=== PATIENT | female | born 1980 | race Caucasian/White ===

== ENCOUNTER 2017-08-22 13:00 | Inpatient (IN) | payer OTHER ==
[~2017-08-22] VITALS: Ht 160 cm; Wt 124.0 kg
[~2017-08-22 13:00] MED LIST: CIPROFLOXACIN 400 MG PREMIX 200 ML IV SCH; DEXAMETHASONE SOD PHOS 4 MG/ML VIAL IV ONE; LACTATED RINGER'S 1,000 ML BAG IV ONE; LIDOCAINE HCL 1% PF 5 ML AMPULE OTHER ONE; MIDAZOLAM HCL 2 MG/2 ML VIAL IV ONE; ONDANSETRON HCL 4 MG/2 ML VIAL IV PUSH ONE; PROPOFOL 200 MG/20 ML AMP IV ONE; ROCURONIUM INJ 50 MG/5 ML SYRINGE IV PUSH ONE
[2017-08-22 13:03] VITALS: BP 168/97; PULSE 145; RESP 28; TEMP 97.8; O2SAT 98
--- NOTE | 2017-08-22 14:38 | PD ---
HPI Chief Complaint: Flank/Kidney Pain Time Seen by Provider: 14:20 Travel History International Travel<30 days: No Contact w/Intl Traveler<30days: No Traveled to known affect area: No History of Present Illness HPI The patient is a 36-year-old female who presents to the emergency department for right flank pain. The patient states she developed pain on Monday located in the right lower quadrant. Pain now radiates up to the right flank and right upper quadrant. The pain has been constant, severe, associated with dry heaves, and a few episodes of loose stool. She also states her last menstrual cycle was 4 months ago, until earlier today when she had a light vaginal spotting. The patient had a test at her physician's office which was negative per her report. The patient also states she is unable to become . The patient does note some dark colored urine and subjective fevers and chills at home. She denies any previous abdominal surgeries. She denies any dysuria, frequency, or urgency. Symptoms are moderate, there are no current alleviating or exacerbating factors. PFSH Past Medical History Medical History: Denies Significant Hx ?: Unknown Past Surgical History Surgical History: No Previous Surgery Social History Alcohol Use: No Tobacco Use: No Substance Use: No Allergies-Medications (Allergen,Severity, Reaction): Coded Allergies: Penicillins (Verified Allergy, Severe, 08/22/17) cefixime (Verified Allergy, Severe, 08/22/17) Review of Systems Except as stated in HPI: all other systems reviewed are Neg General / Constitutional: No: Fever, Chills Cardiovascular: No: Chest Pain or Discomfort Respiratory: No: Shortness of Breath Gastrointestinal: Positive: Nausea, Vomiting (dry heaves), Abdominal Pain Genitourinary: Positive: Flank Pain, Vaginal Bleeding (spotting), No: Dysuria Skin: No Rash Physical Exam Narrative GENERAL: Awake, alert, pleasant 36 year-old female appears her stated age and appears in moderate discomfort. SKIN: Focused skin assessment warm/dry. HEAD: Atraumatic. Normocephalic. EYES: Pupils equal and round. No scleral icterus. No injection or drainage. ENT: No nasal bleeding or discharge. Mucous membranes pink and moist. NECK: Trachea midline. No JVD. CARDIOVASCULAR: Regular, tachycardic with a heart rate of 115. RESPIRATORY: No accessory muscle use. Clear to auscultation. Breath sounds equal bilaterally. GASTROINTESTINAL: Abdomen soft, obese, tender palpation right lower quadrant, right flank, right upper quadrant. Back: Right CVA tenderness. MUSCULOSKELETAL: No obvious deformities. No clubbing. No cyanosis. No edema. NEUROLOGICAL: Awake and alert. No obvious cranial nerve deficits. Motor grossly within normal limits. Normal speech. PSYCHIATRIC: Appropriate mood and affect; insight and judgment normal. Data Data Last Documented VS Vital Signs Date Time Temp Pulse Resp B/P (MAP) Pulse Ox O2 Delivery O2 Flow Rate FiO2 08/22/17 13:03 97.8 145 28 168/97 (120) 98 Orders Orders Complete Blood Count With Diff (08/22/17 13:13) Comprehensive Metabolic Panel (08/22/17 13:13) Lipase (08/22/17 13:13) Prothrombin Time / Inr (Pt) (08/22/17 13:13) Act Partial Throm Time (Ptt) (08/22/17 13:13) Urinalysis - C+S If Indicated (08/22/17 13:13) Ed Urine Pregnancytest Poc (08/22/17 13:13) Ct Abd/Pel W/O Iv Contrast (08/22/17 ) Morphine Inj (Morphine Inj) (08/22/17 14:45) Ondansetron Inj (Zofran Inj) (08/22/17 14:45) Ketorolac Inj (Toradol Inj) (08/22/17 14:45) Sodium Chlor 0.9% 1000 Ml Inj (Ns 1000 M (08/22/17 14:45) Ciprofloxacin 400 Mg Premix (Cipro 400 M (08/22/17 15:30) Metronidazole 500 Mg Inj (Flagyl 500 Mg (08/22/17 15:30) NPO (08/22/17 15:21) Ns + Kcl 20 Meq Inj (Ns + Kcl 20 Meq Inj (08/22/17 15:30) Admit Order (Ed Use Only) (08/22/17 ) Vital Signs (Adult) Q4H (08/22/17 16:27) Diet Npo (08/22/17 Dinner) Activity Oob With Assistance (08/22/17 16:27) Activity Bed Rest With Brp (08/22/17 16:28) Vital Signs (Adult) Q4H (08/22/17 16:28) Notify Parameters (08/22/17 16:28) ^ Obtain (08/22/17 16:28) Sodium Chloride 0.9% Flush (Ns Flush) (08/22/17 16:30) Sodium Chloride 0.9% Flush (Ns Flush) (08/22/17 21:00) Acetaminophen (Tylenol) (08/22/17 16:30) Acetamin-Hydrocod 325-7.5 Mg ([place] [facility] 7.5 (08/22/17 16:30) Morphine Inj (Morphine Inj) (08/22/17 16:30) Ondansetron Inj (Zofran Inj) (08/22/17 16:30) Ciprofloxacin 400 Mg Premix (Cipro 400 M (08/22/17 16:30) Metronidazole 500 Mg Inj (Flagyl 500 Mg (08/22/17 16:30) Labs Laboratory Tests Test 08/22/17 14:15 08/22/17 14:24 White Blood Count 20.7 TH/MM3 Red Blood Count 4.63 MIL/MM3 Hemoglobin 13.8 GM/DL Hematocrit 39.8 % Mean Corpuscular Volume 85.9 FL Mean Corpuscular Hemoglobin 29.8 PG Mean Corpuscular Hemoglobin Concent 34.7 % Red Cell Distribution Width 13.8 % Platelet Count 307 TH/MM3 Mean Platelet Volume 9.1 FL Neutrophils (%) (Auto) 90.4 % Lymphocytes (%) (Auto) 5.5 % Monocytes (%) (Auto) 3.4 % Eosinophils (%) (Auto) 0.4 % Basophils (%) (Auto) 0.3 % Neutrophils # (Auto) 18.7 TH/MM3 Lymphocytes # (Auto) 1.1 TH/MM3 Monocytes # (Auto) 0.7 TH/MM3 Eosinophils # (Auto) 0.1 TH/MM3 Basophils # (Auto) 0.1 TH/MM3 CBC Comment DIFF FINAL Differential Comment Prothrombin Time 11.5 SEC Prothromb Time International Ratio 1.0 RATIO Activated Partial Thromboplast Time 36.0 SEC Blood Urea Nitrogen 14 MG/DL Creatinine 0.81 MG/DL Random Glucose 103 MG/DL Total Protein 8.8 GM/DL Albumin 3.3 GM/DL Calcium Level 9.7 MG/DL Alkaline Phosphatase 94 U/L Aspartate Amino Transf (AST/SGOT) 26 U/L Alanine Aminotransferase (ALT/SGPT) 48 U/L Total Bilirubin 0.9 MG/DL Sodium Level 130 MEQ/L Potassium Level 3.1 MEQ/L Chloride Level 97 MEQ/L Carbon Dioxide Level 24.1 MEQ/L Anion Gap 9 MEQ/L Estimat Glomerular Filtration Rate 80 ML/MIN Lipase 74 U/L Urine Color YELLOW Urine Turbidity HAZY Urine pH 6.5 Urine Specific Boomer 1.030 Urine Protein 300 mg/dL Urine Glucose (UA) NEG mg/dL Urine Ketones 150 mg/dL Urine Occult Blood MOD Urine Nitrite NEG Urine Bilirubin NEG Urine Urobilinogen 2.0 MG/DL Urine Leukocyte Esterase NEG Urine RBC 5 /hpf Urine WBC 5 /hpf Urine Squamous Epithelial Cells 1 /hpf Urine Bacteria RARE /hpf Urine Mucus FEW /lpf Microscopic Urinalysis Comment CULT NOT INDICATED MDM Medical Decision Making Medical Screen Exam Complete: Yes Emergency Medical Condition: Yes Medical Record Reviewed: Yes Interpretation(s) Last Impressions Abdomen/Pelvis CT 08/22/17 0000 Signed Impressions: Service Date/Time: Tuesday, August 22, 2017 14:55 - CONCLUSION: 1. Dilated , inflamed appendix with multiple appendicoliths most consistent with acute appendicitis. No abscess is seen. 2. Fatty infiltration of the liver. Devan Greenberg MD Laboratory Tests Test 08/22/17 14:15 08/22/17 14:24 White Blood Count 20.7 TH/MM3 Red Blood Count 4.63 MIL/MM3 Hemoglobin 13.8 GM/DL Hematocrit 39.8 % Mean Corpuscular Volume 85.9 FL Mean Corpuscular Hemoglobin 29.8 PG Mean Corpuscular Hemoglobin Concent 34.7 % Red Cell Distribution Width 13.8 % Platelet Count 307 TH/MM3 Mean Platelet Volume 9.1 FL Neutrophils (%) (Auto) 90.4 % Lymphocytes (%) (Auto) 5.5 % Monocytes (%) (Auto) 3.4 % Eosinophils (%) (Auto) 0.4 % Basophils (%) (Auto) 0.3 % Neutrophils # (Auto) 18.7 TH/MM3 Lymphocytes # (Auto) 1.1 TH/MM3 Monocytes # (Auto) 0.7 TH/MM3 Eosinophils # (Auto) 0.1 TH/MM3 Basophils # (Auto) 0.1 TH/MM3 CBC Comment DIFF FINAL Differential Comment Prothrombin Time 11.5 SEC Prothromb Time International Ratio 1.0 RATIO Activated Partial Thromboplast Time 36.0 SEC Blood Urea Nitrogen 14 MG/DL Creatinine 0.81 MG/DL Random Glucose 103 MG/DL Total Protein 8.8 GM/DL Albumin 3.3 GM/DL Calcium Level 9.7 MG/DL Alkaline Phosphatase 94 U/L Aspartate Amino Transf (AST/SGOT) 26 U/L Alanine Aminotransferase (ALT/SGPT) 48 U/L Total Bilirubin 0.9 MG/DL Sodium Level 130 MEQ/L Potassium Level 3.1 MEQ/L Chloride Level 97 MEQ/L Carbon Dioxide Level 24.1 MEQ/L Anion Gap 9 MEQ/L Estimat Glomerular Filtration Rate 80 ML/MIN Lipase 74 U/L Urine Color YELLOW Urine Turbidity HAZY Urine pH 6.5 Urine Specific Boomer 1.030 Urine Protein 300 mg/dL Urine Glucose (UA) NEG mg/dL Urine Ketones 150 mg/dL Urine Occult Blood MOD Urine Nitrite NEG Urine Bilirubin NEG Urine Urobilinogen 2.0 MG/DL Urine Leukocyte Esterase NEG Urine RBC 5 /hpf Urine WBC 5 /hpf Urine Squamous Epithelial Cells 1 /hpf Urine Bacteria RARE /hpf Urine Mucus FEW /lpf Microscopic Urinalysis Comment CULT NOT INDICATED Differential Diagnosis Differential diagnosis includes ectopic , appendicitis, ovarian torsion , nephrolithiasis, hydronephrosis, pyelonephritis, perforated viscus, diverticulitis, PID, cervicitis. Narrative Course IV was established, labs are drawn and sent, and the patient was placed on cardiac telemetry monitoring and continuous pulse oximetry monitoring. The patient was administered morphine, Toradol, Zofran, and IV fluids. Bedside UA test was obtained. UA was sent to lab. test is negative. UA reveals ketones. White count is elevated at 20.7. Potassium is low at 3.1, patient was placed on maintenance fluids normal saline 125 miles per hour with KCl. CT of the abdomen and all this is positive for appendicitis. The on-call [facility] surgeon was paged for 23 hour observation. The patient is allergic to penicillins and cephalosporins, therefore, was administered Cipro and Flagyl intravenously. The patient will be kept nothing by mouth. The patient will be 23 hour observation to the [facility] surgeon, Dr. Crowe. Sepsis Criteria SIRS Criteria (2 or more): Heart rate over 90, WBC > 33277, < 4000 or > 10% bands Sepsis Criteria (SIRS+source): Infect source susp/known Criteria Outcome: Meets sepsis criteria Physician Communication Physician Communication The on-call [facility] surgeon was paged for 23 hour observation for appendicitis. I discussed the patient with Dr. Crowe who agrees with 23 hour observation. Admitting Information Admitting Physician Requests: Observation Condition: Stable Arnoldo Way MD Aug 22, 2017 14:38
[2017-08-22] MEDS ORDERED: MORPHINE SULFATE 4 MG/ML INJ IV PUSH ONE (14:45)
[2017-08-22] MEDS ORDERED: SODIUM CHLOR 0.9% 1000 ML INJ 1,000 ML IV ONE (14:45)
[2017-08-22] MEDS ORDERED: ONDANSETRON HCL 4 MG/2 ML VIAL IV PUSH ONE (14:45)
[2017-08-22] MEDS ORDERED: KETOROLAC TROMETHAMINE 30 MG/ML (IVP) VIAL IV PUSH ONE (14:45)
[2017-08-22 14:59] LABS: AUTOMATED NEUTROPHIL # 18.7 TH/MM3 (1.8-7.7); BASOPHIL # 0.1 TH/MM3 (0-0.2); BASOPHIL % 0.3 % (0.0-2.0); EOSINOPHIL # 0.1 TH/MM3 (0-0.4); EOSINOPHIL % 0.4 % (0.0-4.0); HEMATOCRIT 39.8 % (35.0-46.0); HEMO FLAGS DIFF FINAL; LYMPH % 5.5 % (9.0-44.0); LYMPHOCYTE # 1.1 TH/MM3 (1.0-4.8); MEAN CELL VOLUME 85.9 FL (80.0-100.0); MEAN CORPUSCULAR HEMOGLOBIN 29.8 PG (27.0-34.0); MEAN CORPUSCULAR HGB CONC 34.7 % (32.0-36.0); MONO % 3.4 % (0.0-8.0); NEUT % 90.4 % (16.0-70.0); PLATELET COUNT 307 TH/MM3 (150-450); RED BLOOD COUNT 4.63 MIL/MM3 (4.00-5.30); RED CELL DISTRIBUTION WIDTH 13.8 % (11.6-17.2); WHITE BLOOD COUNT 20.7 TH/MM3 (4.0-11.0)
[2017-08-22 15:04] LABS: BACTERIA, URINE RARE /hpf; BLOOD, URINE MOD (NEG); COMMENT (UR) CULT NOT INDICATED; CULTURE IF INDICATED CULT NOT INDICATED; GLUCOSE,URINE NEG (NEG); KETONE, URINE 150 mg/dL (NEG); MUCUS URINE FEW /lpf (OCC); NITRITE,URINE NEG (NEG); PH, URINE 6.5 (5.0-8.5); SQUAMOUS EPITHELIAL CELL URINE 1 /hpf (0-5); URINE COLOR YELLOW (YELLW/STRAW)
[2017-08-22 15:10] LABS: ALKALINE PHOSPHATASE 94 U/L (45-117); TOTAL BILIRUBIN ADULT 0.9 MG/DL (0.2-1.0)
[2017-08-22 15:14] LABS: PROTHROMBIN TIME - PATIENT 11.5 SEC (9.8-11.6)
--- NOTE | 2017-08-22 15:14 | RADRPT ---
EXAM DATE/TIME: 08/22/2017 14:55 [facility] COMPARISON: No previous studies available for comparison. INDICATIONS : Right flank pain for three days. ORAL CONTRAST: No oral contrast ingested. RADIATION DOSE: 8.54 CTDIvol (mGy) MEDICAL HISTORY : None SURGICAL HISTORY : None. ENCOUNTER: Initial ACUITY: 1 day PAIN SCALE: 5/10 LOCATION: Right flank TECHNIQUE: Volumetric scanning of the abdomen and pelvis was performed. Using automated exposure control and ad justment of the mA and/or kV according to patient size, radiation dose was kept as low as reasonably achievable to obtain optimal diagnostic quality images. DICOM format image data is available electro nically for review and comparison. FINDINGS: Right kidney/ureter: The right kidney is normal in size. No stones are seen. The right ureter is followed throughout its c ourse and is unremarkable in appearance. Left kidney/ureter: The left kidney is normal in size. No stones are seen. There is no hydronephrosis. The left ureter is followed throughout its course and is unremarkable in appearance. Moderate: No stones are seen within the bladder. CT source data: The examination demonstrates a dilated, fluid-filled appendix with multiple appendicoliths. There are inflammatory changes surrounding the appendix. Findings would be most consistent with acute appendic itis. No focal abscess is seen. No free air is seen. The visualized bony structures demonstrate degenerative changes but are otherwise intact. There is diffuse fatty infiltration within the liver. The spleen, pancreas and adrenal glands are int act. CONCLUSION: 1. Dilated, inflamed appendix with multiple appendicoliths most consistent with acute appendicitis. N o abscess is seen. 2. Fatty infiltration of the liver. Devan Greenberg MD on August 22, 2017 at 15:10 Board Certified Radiologist. This report was verified electronically.
[2017-08-22 15:23] LABS: ALT (GPT) 48 U/L (10-53); ANION GAP 9 MEQ/L (5-15); AST (GOT) 26 U/L (15-37); BICARBONATE 24.1 MEQ/L (21.0-32.0); BLOOD UREA NITROGEN 14 MG/DL (7-18); CHLORIDE 97 MEQ/L (98-107); GLOMERULAR FILTRATION RATE 80 ML/MIN (>89); SODIUM (NA) 130 MEQ/L (136-145)
[2017-08-22 15:26] LABS: POTASSIUM 3.1 MEQ/L (3.5-5.1)
[2017-08-22] MEDS ORDERED: NS + KCL 20 MEQ INJ 1,000 ML IV SCH (15:30)
[2017-08-22] MEDS ORDERED: CIPROFLOXACIN 400 MG PREMIX 200 ML IV ONE (15:30)
[2017-08-22] MEDS ORDERED: metroNIDAZOLE 500 MG INJ 100 ML IV ONE (15:30)
[2017-08-22] MEDS ORDERED: SODIUM CHLORIDE 0.9% FLUSH 10 ML FLUSH IV FLUSH PRN ×2 (16:30→23:30)
[2017-08-22] MEDS ORDERED: ONDANSETRON HCL 4 MG/2 ML VIAL IV PUSH PRN ×2 (16:30→23:30)
[2017-08-22] MEDS ORDERED: ACETAMINOPHEN 500 MG CPLT PO PRN (16:30)
[2017-08-22] MEDS ORDERED: ACETAMINOPHEN/HYDROcodone 325 MG/7.5 MG TAB PO PRN (16:30)
[2017-08-22] MEDS ORDERED: MORPHINE SULFATE 2 MG/ML INJ IV PUSH PRN (17:00)
[2017-08-22 17:46] VITALS: BP 110/71; PULSE 77; RESP 15; TEMP 98.3; O2SAT 96
[2017-08-22] MEDS ORDERED: BUPIVACAINE/EPINEPHRINE 0.5% PF 30 ML VIAL ONE (18:22)
[2017-08-22] MEDS ORDERED: ACETAMINOPHEN 1000 MG/100 ML 100 ML IV ONE (19:36)
[2017-08-22] MEDS ORDERED: SUGAMMADEX SODIUM 200 MG/2 ML VIAL IV PUSH ONE ×2 (19:36)
[2017-08-22] MEDS ORDERED: HYDROmorphone HCL PF 2 MG/ML VIAL ONE (19:36)
[2017-08-22 20:00] VITALS: BP 116/57; PULSE 88; RESP 17; TEMP 97.5; O2SAT 99
[2017-08-22] MEDS ORDERED: SODIUM CHLORIDE 0.9% FLUSH 10 ML FLUSH IV FLUSH SCH (21:00)
[2017-08-22] MEDS: D5-1/2 NS + KCL 20 MEQ INJ 1,000 ML IV SCH (23:16)
[2017-08-22] MEDS ORDERED: Post-op Orders (for Pharmacy) MISC XX ONE (23:30)
[2017-08-22] MEDS ORDERED: HYDROmorphone HCL PF 1 MG/ML VIAL IV PUSH PRN (23:30)
[2017-08-22] MEDS ORDERED: MORPHINE SULFATE 4 MG/ML INJ IV PUSH PRN ×2 (23:30)
[2017-08-22] MEDS ORDERED: NALOXONE HCL 0.4 MG/ML AMP IV PUSH PRN (23:30)
[2017-08-23] MEDS: PANTOPRAZOLE SODIUM 40 MG VIAL IV PUSH SCH
[2017-08-23] MEDS ORDERED: DO NOT ADM ANY ANTICOAGULANT DRUGS PRN (00:15)
--- NOTE | 2017-08-23 00:17 | MH ---
cc: KANA WEBBER DATE OF ADMISSION: 08/22/2017 ADMITTING DIAGNOSIS: Acute appendicitis. BRIEF HISTORY The patient is a 36-year-old woman who began having abdominal pain sometime on Monday. She thought it might be menstrual cramps as it was located on the right side which she has had previously. She had the pain worsen and also had associated nausea but no emesis over the 48 hours. Today the pain had increased to the point where she was having difficulty staying in one place and had to come to the hospital. Subsequent evaluation showed acute appendicitis with significant dilatation of the appendix. She has had intermittent fevers at home but she has not measured it. She denies any urinary tract symptoms. PAST MEDICAL HISTORY The patient has had no major medical or surgical problems requiring hospitalization. MEDICATIONS: She only takes metformin 500 mg daily PPI for acid reflux. SOCIAL HISTORY, FAMILY HISTORY AND REVIEW OF SYSTEMS Negative, except as in HPI. ALLERGIES: THE PATIENT HAS NO KNOWN ALLERGY TO PENICILLINS AND CEFIXIME. PHYSICAL EXAMINATION: VITAL SIGNS: Temperature 97.8, blood pressure 168/97, heart rate 140. General: The patient is a morbidly obese woman who is in moderate to significant distress. HEENT: Unremarkable. No lesions, inflammation or scleral icterus. Neck is supple. No adenopathy or thyromegaly. Chest: Clear to percussion and auscultation. Heart: No murmurs or gallops with a regular rate and rhythm. Abdomen: Obese and exquisitely tender on the right lower side with significant guarding and percussive rebound. The remainder of her abdomen is soft. Extremities/Neuro: Grossly intact. LABORATORY DATA: White blood cell count is 20,700 with a significant neutrophilia, hemoglobin 13.8, electrolytes and liver function tests were grossly normal. CT scan: As above shows acute appendicitis. IMPRESSION Acute appendicitis. PLAN Laparoscopic appendectomy. I have explained the procedure to the patient including the risks of bleeding, infection, anesthesia, the possibility of open operation, possibility and need for reoperation. She understands and is agreeable to the procedure. MD ZION Childress/ISAAC /11:35 PM /12:06 AM
--- NOTE | 2017-08-23 00:17 | MP ---
cc: LAWANDAKANA DATE OF SURGERY: 08/22/2017 PREOPERATIVE DIAGNOSIS: Acute appendicitis POSTOPERATIVE DIAGNOSIS Acute and chronic appendicitis with gangrenous appendix and abscess formation. PROCEDURE Laparoscopic appendectomy, placement of drain. SURGEON Jovana Crowe MD. ANESTHESIA General endotracheal OPERATIVE FINDINGS The patient was found to have a grossly distended appendix which had perforated and had a small amount of fecalith contamination in the area of an abscess with minimal purulence. There was quite a bit of exudate in the area and the base of the appendix at the cecum was quite hardened with chronic inflammation. The appendix was necrotic in its proximal third with the base of the appendix in its junction with the cecum barely able to be visualized due to necrotic tissue. No other gross abnormalities were noted. OPERATIVE PROCEDURE The patient was brought to the operating room and after satisfactory general endotracheal anesthesia was obtained, the abdomen was prepped and draped in the usual sterile fashion. 0.5% Marcaine with epinephrine used to infiltrate the skin for local anesthesia. A small incision was made above the umbilicus and a 5 mm trocar was inserted into the peritoneal cavity under direct visualization. The abdomen was distended to 15 mmHg using carbon dioxide after which the camera was reinserted and visceral injury inspected for, with none being identified. Under direct visualization a 12 port was placed in the lower abdomen and another 5 port was placed to the left side of the abdomen. (It should be noted that these ports were shifted around and she had a total of six incisions, five of which were 5 millimeter incisions). Dissection was tedious due to the patient's body habitus as well as the amount of dense indurated tissue in the area of the appendiceal phlegmon. Once it could be identified that the patient's appendix was partially retrocecal, the cecum was able to be rotated gradually into more visualization and the base of the appendix was seen to be necrotic as above. Gradually the dissection was carried out to expose the appendix along its entire length and was grasped with an Endo Sheeba. There was no distinct mesoappendix noted, nor was there any vessel noted to be bleeding. The appendix was amputated in its most viable portion near the base of the appendix using Endo GAIL 35 millimeter stapler. The appendix was then placed into an EndoCatch bag and brought through the lower midline incision where it was sent for permanent pathology. The trocar was reinserted and the area was inspected and found to be hemostatic. Irrigation was carried out. There is no evidence of stool contamination at that point and there was no obvious leakage of stool from the cecum. The area of necrotic tissue was carefully inspected but no defects into the cecum could be noted and it was impossible to remove the remainder of it due to the dense eschar in the area. At that point it was elected to leave a drain, and a 10 mm Corona drain was brought through the 12 millimeter port and placed in the area of the appendiceal stump and brought out through one of the 5 mm incisions were it was sutured to the skin with a 2-0 nylon. Once again hemostasis was checked for found to be satisfactory. Once again stool leakage was checked for and none was found. The carbon dioxide was then vented as completely as possible into the atmosphere. The ports were removed and skin closed with interrupted 4-0 Monocryl subcuticular stitches. Steri-Strips were applied and the patient was then awakened and taken from the operating room in satisfactory condition having tolerated the procedure without problem. Estimated blood loss was less than 25 mL. The instrument count, sponge count and needle counts were reported as being correct x2 at the end of procedure. MD ZION Childress/ISAAC /11:39 PM /12:13 AM
[2017-08-23] MEDS: LEVOFLOXACIN 500 MG PREMIX INJ 100 ML IV SCH (01:00)
[2017-08-23 02:27] VITALS: BP 105/59; PULSE 75; RESP 16; TEMP 97.6; O2SAT 96
[2017-08-23] MEDS ORDERED: LEVO200T4 PO (04:58)
[2017-08-23] MEDS ORDERED: PANT20TA2 PO (04:58)
[2017-08-23] MEDS ORDERED: METF500T PO (04:58)
[2017-08-23] MEDS ORDERED: metroNIDAZOLE 500 MG INJ 100 ML IV SCH (05:00)
[2017-08-23] MEDS: KETOROLAC TROMETHAMINE 30 MG/ML (IVP) VIAL IV PUSH SCH ×4 (06:12→18:01)
[2017-08-23] MEDS: metroNIDAZOLE 500 MG INJ 100 ML IV SCH ×4 (06:12→18:00)
[2017-08-23] MEDS: METOCLOPRAMIDE HCL 10 MG/2 ML VIAL IV PUSH SCH ×4 (06:12→18:01)
[2017-08-23 07:58] LABS: AUTOMATED NEUTROPHIL # 12.7 TH/MM3 (1.8-7.7); BASOPHIL % 0.1 % (0.0-2.0); HEMATOCRIT 35.3 % (35.0-46.0); LYMPH % 3.6 % (9.0-44.0); LYMPHOCYTE # 0.5 TH/MM3 (1.0-4.8); MEAN CELL VOLUME 86.7 FL (80.0-100.0); MEAN CORPUSCULAR HEMOGLOBIN 28.9 PG (27.0-34.0); MEAN CORPUSCULAR HGB CONC 33.4 % (32.0-36.0); MONO % 4.1 % (0.0-8.0); NEUT % 92.2 % (16.0-70.0); PLATELET COUNT 246 TH/MM3 (150-450); RED BLOOD COUNT 4.07 MIL/MM3 (4.00-5.30); RED CELL DISTRIBUTION WIDTH 13.7 % (11.6-17.2); WHITE BLOOD COUNT 13.8 TH/MM3 (4.0-11.0)
[2017-08-23 08:00] VITALS: BP 97/56; PULSE 66; RESP 16; TEMP 96.6; O2SAT 94
[2017-08-23 08:01] LABS: HEMO FLAGS AUTO DIFF
[2017-08-23] MEDS: D5-1/2 NS + KCL 20 MEQ INJ 1,000 ML IV SCH ×3 (08:32→21:12)
[2017-08-23 08:36] LABS: BICARBONATE 23.4 MEQ/L (21.0-32.0); POTASSIUM 3.4 MEQ/L (3.5-5.1)
[2017-08-23] MEDS: SODIUM CHLORIDE 0.9% FLUSH 10 ML FLUSH IV FLUSH SCH ×2 (09:00→21:00)
[2017-08-23 09:04] LABS: BANDS 28 % (0-6); DOHLE BODIES PRESENT (NONE SEEN); METAMYELOCYTES 1 % (0-1); NEUTROPHIL # MANUAL DIFF 13.1 TH/MM3 (1.8-7.7); PLATELET ESTIMATE SMEAR NORMAL (NORMAL); POLYS (SEG NEUTROPHILS) 66 % (16-70); WBC DIFF SAMPLE 100
[2017-08-23 09:05] LABS: PLATELET MORPHOLOGY ENLARGED (NORMAL); SCAN/DIFF FINAL DIFF MANUAL
[2017-08-23 12:00] VITALS: BP 107/66; PULSE 76; RESP 17; TEMP 96.7; O2SAT 95
[2017-08-23] MEDS: ACETAMINOPHEN/HYDROcodone 325 MG/10 MG TAB PO PRN ×2 (14:57→21:10)
[2017-08-23 16:00] VITALS: BP 108/68; PULSE 73; RESP 17; TEMP 97.1; O2SAT 96
[2017-08-23 20:00] VITALS: BP 100/54; PULSE 76; RESP 17; TEMP 98.3; O2SAT 96
[2017-08-23] MEDS: ENOXAPARIN SODIUM 30 MG/0.3 ML SYRINGE SQ SCH (21:10)
[2017-08-24] VITALS: BP 94/51; PULSE 69; RESP 18; TEMP 97.8; O2SAT 95
[2017-08-24] MEDS: KETOROLAC TROMETHAMINE 30 MG/ML (IVP) VIAL IV PUSH SCH ×4 (00:10→17:08)
[2017-08-24] MEDS: METOCLOPRAMIDE HCL 10 MG/2 ML VIAL IV PUSH SCH ×4 (00:10→17:08)
[2017-08-24] MEDS: metroNIDAZOLE 500 MG INJ 100 ML IV SCH ×3 (00:10→11:50)
[2017-08-24] MEDS: PANTOPRAZOLE SODIUM 40 MG VIAL IV PUSH SCH (00:10)
[2017-08-24] MEDS: LEVOFLOXACIN 500 MG PREMIX INJ 100 ML IV SCH (00:11)
[2017-08-24] MEDS: ACETAMINOPHEN/HYDROcodone 325 MG/10 MG TAB PO PRN ×2 (01:28→10:27)
[2017-08-24] MEDS: D5-1/2 NS + KCL 20 MEQ INJ 1,000 ML IV SCH ×4 (05:43→21:56)
[2017-08-24] MEDS: ACETAMINOPHEN/HYDROcodone 325 MG/5 MG TAB PO PRN ×4 (05:50→23:00)
[2017-08-24 07:45] VITALS: BP 109/54; PULSE 74; RESP 12; TEMP 97.3; O2SAT 95
[2017-08-24] MEDS: SODIUM CHLORIDE 0.9% FLUSH 10 ML FLUSH IV FLUSH SCH (09:00)
[2017-08-24 11:51] VITALS: BP 116/58; PULSE 82; RESP 20; TEMP 98.7; O2SAT 95
[2017-08-24 16:00] VITALS: BP 108/60; PULSE 85; RESP 16; TEMP 98.4; O2SAT 97
--- NOTE | 2017-08-24 17:02 | HHI.PR ---
Subjective Subjective Notes She feels much better than she did yesterday. She has decreased pain. She is passing flatus on several occasions but has not had any bowel movements. She is tolerating a full liquid diet without problem at this point. Objective Vitals/I&O Vital Signs Date Time Temp Pulse Resp B/P (MAP) Pulse Ox O2 Delivery O2 Flow Rate FiO2 08/24/17 11:51 98.7 82 20 116/58 (77) 95 08/23/17 00:54 Nasal Cannula 2 Cardiovascular: Regular Lungs: Clear Abdomen: Non-distended, Post-op tenderness Extremities: No edema A/P Assessment and Plan Impression: Postop day #2 status post laparoscopic appendectomy for gangrenous appendix. The Pavel-Muro drain remains serosanguineous and she is improving daily. Plan: The patient will be placed on a regular diet in the morning and she will be transitioned to oral antibiotics. Jesse Crowe MD Aug 24, 2017 17:02
[2017-08-24] MEDS: metroNIDAZOLE 500 MG TAB PO SCH (18:12)
[2017-08-24 20:00] VITALS: BP 113/60; PULSE 90; RESP 18; TEMP 98.5; O2SAT 98
[2017-08-25] VITALS: BP 109/53; PULSE 90; RESP 20; TEMP 98.5; O2SAT 98
[2017-08-25] MEDS: ENOXAPARIN SODIUM 30 MG/0.3 ML SYRINGE SQ SCH (00:33)
[2017-08-25] MEDS: SODIUM CHLORIDE 0.9% FLUSH 10 ML FLUSH IV FLUSH SCH ×2 (00:33→08:28)
[2017-08-25] MEDS: METOCLOPRAMIDE HCL 10 MG/2 ML VIAL IV PUSH SCH ×3 (00:34→10:41)
[2017-08-25] MEDS: PANTOPRAZOLE SODIUM 40 MG VIAL IV PUSH SCH (00:34)
[2017-08-25] MEDS: KETOROLAC TROMETHAMINE 30 MG/ML (IVP) VIAL IV PUSH SCH ×3 (00:35→10:40)
[2017-08-25] MEDS: metroNIDAZOLE 500 MG TAB PO SCH ×4 (00:35→16:39)
[2017-08-25 04:00] VITALS: BP 103/50; PULSE 87; RESP 20; TEMP 98.8; O2SAT 96
[2017-08-25] MEDS: D5-1/2 NS + KCL 20 MEQ INJ 1,000 ML IV SCH ×2 (04:11→08:30)
[2017-08-25] MEDS: ACETAMINOPHEN/HYDROcodone 325 MG/5 MG TAB PO PRN ×3 (04:13→13:41)
[2017-08-25 07:35] LABS: AUTOMATED NEUTROPHIL # 9.4 TH/MM3 (1.8-7.7); BASOPHIL # 0.1 TH/MM3 (0-0.2); BASOPHIL % 0.7 % (0.0-2.0); EOSINOPHIL # 0.3 TH/MM3 (0-0.4); EOSINOPHIL % 2.2 % (0.0-4.0); HEMATOCRIT 31.8 % (35.0-46.0); LYMPHOCYTE # 1.6 TH/MM3 (1.0-4.8); MEAN CORPUSCULAR HEMOGLOBIN 29.5 PG (27.0-34.0); MEAN CORPUSCULAR HGB CONC 33.9 % (32.0-36.0); NEUT % 75.1 % (16.0-70.0); PLATELET COUNT 277 TH/MM3 (150-450); RED BLOOD COUNT 3.66 MIL/MM3 (4.00-5.30); RED CELL DISTRIBUTION WIDTH 14.1 % (11.6-17.2); WHITE BLOOD COUNT 12.5 TH/MM3 (4.0-11.0)
[2017-08-25 08:01] VITALS: BP 122/72; PULSE 86; RESP 16; TEMP 98; O2SAT 95
[2017-08-25 08:06] LABS: HEMO FLAGS AUTO DIFF
[2017-08-25] MEDS ORDERED: LEVOFLOXACIN 500 MG TAB PO SCH (09:00)
[2017-08-25 09:31] LABS: BANDS 5 % (0-6); EOSINOPHILS 4 % (0-4); NEUTROPHIL # MANUAL DIFF 9.6 TH/MM3 (1.8-7.7); PLASMA CELLS 1 % (0-0); POLYS (SEG NEUTROPHILS) 72 % (16-70); WBC DIFF SAMPLE 100
[2017-08-25 09:33] LABS: PLATELET ESTIMATE SMEAR NORMAL (NORMAL); PLATELET MORPHOLOGY NORMAL (NORMAL); SCAN/DIFF FINAL DIFF MANUAL
[2017-08-25 11:49] VITALS: BP 114/66; PULSE 81; RESP 16; TEMP 98.3; O2SAT 95
--- NOTE | 2017-08-25 15:47 | HHI.DS ---
Discharge Summary Admission Date Aug 22, 2017 at 23:27 Discharge Date: Aug 25, 2017 Admitting Diagnosis acute appendicitis Procedures Lap appy Aug 25 Brief History Two day h/o abdominal pain; ED visit proved appendicitis. CBC/BMP: 08/25/17 0630 08/23/17 0621 Significant Findings Laboratory Tests Test 08/23/17 06:21 08/25/17 06:30 White Blood Count 13.8 TH/MM3 (4.0-11.0) 12.5 TH/MM3 (4.0-11.0) Neutrophils (%) (Auto) 92.2 % (16.0-70.0) 75.1 % (16.0-70.0) Lymphocytes (%) (Auto) 3.6 % (9.0-44.0) Neutrophils # (Auto) 12.7 TH/MM3 (1.8-7.7) 9.4 TH/MM3 (1.8-7.7) Lymphocytes # (Auto) 0.5 TH/MM3 (1.0-4.8) Band Neutrophils % 28 % (0-6) Lymphocytes % 3 % (9-44) Neutrophils # (Manual) 13.1 TH/MM3 (1.8-7.7) 9.6 TH/MM3 (1.8-7.7) Dohle Bodies PRESENT (NONE SEEN) Platelet Morphology Comment ENLARGED (NORMAL) Random Glucose 198 MG/DL (74-106) Sodium Level 135 MEQ/L (136-145) Potassium Level 3.4 MEQ/L (3.5-5.1) Red Blood Count 3.66 MIL/MM3 (4.00-5.30) Hemoglobin 10.8 GM/DL (11.6-15.3) Hematocrit 31.8 % (35.0-46.0) Monocytes (%) (Auto) 9.0 % (0.0-8.0) Monocytes # (Auto) 1.1 TH/MM3 (0-0.9) Neutrophils % (Manual) 72 % (16-70) Plasma Cells 1 % (0-0) PE at Discharge Lungs clear Ht RRR Abd benign Hospital Course Made an uneventful recovery Pt Condition on Discharge: Good Discharge Disposition: Discharge Home Discharge Instructions DIET: Follow Instructions for: As Tolerated, No Restrictions Activities you can perform: Regular-No Restrictions Jesse Crowe MD Aug 25, 2017 15:47
[2017-08-26] MEDS ORDERED: PANTOPRAZOLE SOD 40 MG DELAYED RELEASE TAB PO SCH
== END 2017-08-25 16:56 | disposition home or self-care (01) | DRG 339 ==
LOC: NEPD 13:00 → NEDA 16:29 → N07A 18:52 → OBSVTOIN 23:27
PROVIDERS: ADMIT Surgery; ATTEND Surgery
PROC: 0DTJ4ZZ Resection of Appendix, Percutaneous Endoscopic Approach (ICD-10-PCS; principal; 2017-08-22 20:24)
DX: K35.2 Acute appendicitis with generalized peritonitis (principal); Z68.42 Body mass index [BMI] 45.0-49.9, adult; K76.0 Fatty (change of) liver, not elsewhere classified; E66.01 Morbid (severe) obesity due to excess calories; K36 Other appendicitis; K21.9 Gastro-esophageal reflux disease without esophagitis; Z88.0 Allergy status to penicillin; Z88.1 Allergy status to other antibiotic agents
CPT/HCPCS: 74176; 80048; 80053; 81001; 83690; 84703; 85007; 85025; 85027; 85610; 85730; 88304; 94150; 96361; 96365; 96375; C9113; J0131; J0744; J1100; J1170; J1650; J1885; J1956; J2250; J2270; J2405; J2765; J3010; J3480; J7030; J7120